=== PATIENT | female | born 1945 | race Two or more races ===

== ENCOUNTER 2022-06-11 19:06 | Inpatient (IN) | payer OTHER ==
[~2022-06-11] VITALS: Ht 170.2 cm; Wt 76.5 kg
[2022-06-11 21:14] LABS: Basophils # (auto) 0 10 ^3/uL (0-0.2); Basophils % (auto) 0.6 % (0.0-2.0); Eosinophils # (auto) 0.1 10 ^3/uL (0-0.8); Eosinophils % (auto) 3.6 % (0.0-7.0); Hematocrit 32.4 % (36.0-46.0); Hemoglobin 11.2 g/dL (12.2-16.2); Lymphocytes # (auto) 0.7 10 ^3/uL (0.4-5.4); Lymphocytes % (auto) 19.1 % (10.0-50.0); Mean Corpuscular Hgb Conc. 34.4 g/dL (32.0-36.0); Mean Corpuscular Volume 84.3 fL (80.0-100.0); Monocytes # (auto) 0.4 10 ^3/uL (0-1.3); Monocytes % (auto) 11.4 % (0.0-12.0); Neutrophils # (auto) 2.5 10 ^3/uL (1.6-8.6); Neutrophils % (auto) 65.3 % (37.0-80.0); Nucleated Red Blood Cells % 0.1 %; Red Blood Cells 3.85 10^6/uL (4.0-5.20); Red Cell Distribution Width 14.5 % (11.8-14.3); White Blood Cell 3.9 10^3/uL (4.4-10.8)
[2022-06-11 21:47] LABS: Alanine Aminotransferase 54 U/L (13-56); Albumin 2.8 g/dL (3.4-5.0); Alkaline Phosphatase 97 U/L (45-117); Anion Gap 9 (5-15); Aspartate Aminotransferase 43 U/L (15-37); BUN/Creatinine Ratio 15.4; Bilirubin, Total 0.7 mg/dL (0.2-1.0); Blood Urea Nitrogen 16 mg/dL (7-18); Calcium 8.4 mg/dL (8.5-10.1); Carbon Dioxide 27 mmol/L (21-32); Chloride 101 mmol/L (98-107); GFR African American 67 mL/min; GFR Non-African American 55 mL/min; Glucose 255 mg/dL (74-106); Magnesium 1.7 mg/dL (1.6-2.6); Potassium 3.5 mmol/L (3.5-5.1); Sodium 137 mmol/L (136-145); Total Protein 5.9 g/dL (6.4-8.2)
[2022-06-12] MEDS ORDERED: SODIUM CHLORIDE 0.9% 1,000 ML IV ONE (01:45)
[2022-06-12] MEDS ORDERED: ONDANSETRON HCL 4 MG/2 ML VIAL IV ONE (03:00)
[2022-06-12] MEDS ORDERED: MORPHINE SULFATE INJ 2 MG/ml SYRG IV PRN (04:30)
[2022-06-12] MEDS ORDERED: ACETAMINOPHEN 325 MG TAB PO PRN (04:30)
[2022-06-12] MEDS ORDERED: DOCUSATE SOD 100 MG CAP PO PRN (04:30)
[2022-06-12] MEDS ORDERED: LORazepam 0.5 MG TAB PO PRN (04:30)
[2022-06-12] MEDS ORDERED: TEMAZEPAM 15 MG CAP PO PRN (04:30)
[2022-06-12] MEDS: SODIUM CHLORIDE 0.9% 1,000 ML IV SCH ×3 (07:04→23:01)
[2022-06-12 08:30] LABS: Basophils # (auto) 0 10 ^3/uL (0-0.2); Basophils % (auto) 0.4 % (0.0-2.0); Eosinophils # (auto) 0.2 10 ^3/uL (0-0.8); Eosinophils % (auto) 5.2 % (0.0-7.0); Hematocrit 31.7 % (36.0-46.0); Hemoglobin 10.8 g/dL (12.2-16.2); Lymphocytes % (auto) 21.2 % (10.0-50.0); Mean Corpuscular Hemoglobin 28.4 pg (28.0-32.0); Mean Corpuscular Hgb Conc. 34.1 g/dL (32.0-36.0); Mean Corpuscular Volume 83.3 fL (80.0-100.0); Monocytes # (auto) 0.5 10 ^3/uL (0-1.3); Monocytes % (auto) 11.4 % (0.0-12.0); Neutrophils # (auto) 2.8 10 ^3/uL (1.6-8.6); Neutrophils % (auto) 61.8 % (37.0-80.0); Nucleated Red Blood Cells % 0.1 %; Red Cell Distribution Width 14.4 % (11.8-14.3); White Blood Cell 4.6 10^3/uL (4.4-10.8)
[2022-06-12] MEDS: ONDANSETRON HCL 4 MG/2 ML VIAL IV PRN ×2 (08:56→20:16)
[2022-06-12 09:56] LABS: Potassium 3.4 mmol/L (3.5-5.1)
[2022-06-12 09:57] LABS: BUN/Creatinine Ratio 18.2; Calcium 7.9 mg/dL (8.5-10.1)
[2022-06-12 10:49] LABS: INR 1.3 (0.9-1.15)
[2022-06-13] MEDS: MAALOX PLUS or MAALOX 30 ML PO PRN (00:31)
[2022-06-13 01:04] LABS: Urine Bacteria NONE SEEN /hpf (None Seen); Urine Blood 1+ /uL (Negative); Urine Specific Gravity 1.009 (1.001-1.035); Urine WBC 5 /hpf (0 - 5)
[2022-06-13 05:43] LABS: Basophils # (auto) 0 10 ^3/uL (0-0.2); Basophils % (auto) 0.4 % (0.0-2.0); Eosinophils # (auto) 0.2 10 ^3/uL (0-0.8); Eosinophils % (auto) 4.9 % (0.0-7.0); Hematocrit 30.2 % (36.0-46.0); Hemoglobin 10.2 g/dL (12.2-16.2); Lymphocytes # (auto) 1.1 10 ^3/uL (0.4-5.4); Lymphocytes % (auto) 21.5 % (10.0-50.0); Mean Corpuscular Hemoglobin 28.4 pg (28.0-32.0); Mean Corpuscular Hgb Conc. 33.8 g/dL (32.0-36.0); Mean Corpuscular Volume 83.8 fL (80.0-100.0); Monocytes # (auto) 0.5 10 ^3/uL (0-1.3); Monocytes % (auto) 9.3 % (0.0-12.0); Neutrophils # (auto) 3.2 10 ^3/uL (1.6-8.6); Neutrophils % (auto) 63.9 % (37.0-80.0); Nucleated Red Blood Cells % 0.1 %; Red Blood Cells 3.61 10^6/uL (4.0-5.20); Red Cell Distribution Width 14.3 % (11.8-14.3)
[2022-06-13 06:05] LABS: BUN/Creatinine Ratio 23.6; Calcium 8.3 mg/dL (8.5-10.1); Potassium 3.3 mmol/L (3.5-5.1)
[2022-06-13] MEDS ORDERED: POTASSIUM EFFERVESENT TAB 25 MEQ GT ONE (11:45)
[2022-06-13] MEDS: SODIUM CHLORIDE 0.9% 1,000 ML IV SCH (13:56)
[2022-06-13] MEDS: ONDANSETRON HCL 4 MG/2 ML VIAL IV PRN (13:58)
[2022-06-13] MEDS ORDERED: DABI150C5 PO (15:41)
[2022-06-13] MEDS ORDERED: METF-370 PO (15:42)
[2022-06-13] MEDS ORDERED: BISO10TA31 PO (15:43)
[2022-06-13] MEDS ORDERED: ONDA-144 PO (15:44)
[2022-06-13] MEDS ORDERED: LISI30TA4 PO (15:46)
[2022-06-13] MEDS ORDERED: ATOR20TA50 PO (15:47)
[2022-06-13] MEDS ORDERED: LISINOPRIL 20 MG TAB PO ONE (16:00)
[2022-06-13] MEDS ORDERED: ATORVASTATIN 20 MG TAB PO ONE (16:00)
[2022-06-13 18:00] VITALS: BP 146/47
[2022-06-13] MEDS: metFORMIN HYDROCHLORIDE 500 MG TAB PO SCH (21:18)
[2022-06-13 22:00] VITALS: BP 136/55
[2022-06-14] MEDS: HYDROcodone-ACET 5/325MG TAB PO PRN (04:42)
[2022-06-14 05:00] VITALS: BP 112/70
[2022-06-14] MEDS: SODIUM CHLORIDE 0.9% 1,000 ML IV SCH ×2 (05:44→23:10)
[2022-06-14 06:11] LABS: Basophils # (auto) 0 10 ^3/uL (0-0.2); Basophils % (auto) 0.3 % (0.0-2.0); Eosinophils # (auto) 0.2 10 ^3/uL (0-0.8); Eosinophils % (auto) 2.6 % (0.0-7.0); Hematocrit 32.4 % (36.0-46.0); Hemoglobin 11.2 g/dL (12.2-16.2); Lymphocytes % (auto) 15.8 % (10.0-50.0); Mean Corpuscular Hemoglobin 29.2 pg (28.0-32.0); Mean Corpuscular Hgb Conc. 34.7 g/dL (32.0-36.0); Mean Corpuscular Volume 84.2 fL (80.0-100.0); Monocytes # (auto) 0.5 10 ^3/uL (0-1.3); Monocytes % (auto) 7.6 % (0.0-12.0); Neutrophils # (auto) 4.9 10 ^3/uL (1.6-8.6); Neutrophils % (auto) 73.7 % (37.0-80.0); Nucleated Red Blood Cells % 0.1 %; Red Blood Cells 3.85 10^6/uL (4.0-5.20); Red Cell Distribution Width 14.6 % (11.8-14.3); White Blood Cell 6.6 10^3/uL (4.4-10.8)
[2022-06-14 06:25] LABS: Calcium 8.1 mg/dL (8.5-10.1)
[2022-06-14 06:27] LABS: BUN/Creatinine Ratio 17.2
[2022-06-14] MEDS: metFORMIN HYDROCHLORIDE 500 MG TAB PO SCH (08:29)
[2022-06-14] MEDS: MAALOX PLUS or MAALOX 30 ML PO PRN (08:35)
[2022-06-14 09:17] VITALS: BP 103/73
[2022-06-14] MEDS ORDERED: DEXTROSE (50%) 50ML SYRG IV PRN (14:45)
[2022-06-14] MEDS ORDERED: levoFLOXacin 500 MG TAB PO ONE (14:45)
[2022-06-14 16:51] VITALS: BP 129/52
[2022-06-14] MEDS: ACCU-CHEK COMFORT CURVE STRIP VI SCH ×2 (17:58→23:55)
[2022-06-14] MEDS: InsuLIN REG 1unit/0.01ml Soln (100units/ml) SC SCH (17:59)
[2022-06-14] MEDS: PANCREATIC ENZYMES 4200 UNIT CAP PO SCH (18:16)
[2022-06-14 22:00] VITALS: BP 143/60
[2022-06-15] MEDS: InsuLIN REG 1unit/0.01ml Soln (100units/ml) SC SCH ×4 (00:14→17:31)
[2022-06-15 05:00] VITALS: BP 149/72
[2022-06-15] MEDS: ACCU-CHEK COMFORT CURVE STRIP VI SCH ×3 (05:55→17:30)
[2022-06-15] MEDS: HYDROcodone-ACET 5/325MG TAB PO PRN (06:09)
[2022-06-15 07:26] LABS: Potassium 3.8 mmol/L (3.5-5.1)
[2022-06-15 07:33] LABS: BUN/Creatinine Ratio 16.9
[2022-06-15] MEDS: PANCREATIC ENZYMES 4200 UNIT CAP PO SCH ×3 (08:23→17:53)
[2022-06-15 09:00] VITALS: BP 160/82
[2022-06-15] MEDS: levoFLOXacin 500 MG TAB PO SCH (09:51)
[2022-06-15 13:00] VITALS: BP 86/70
[2022-06-15] MEDS ORDERED: SODIUM CHLORIDE 0.9% 1,000 ML IV ONE (14:45)
[2022-06-15] MEDS: SODIUM CHLORIDE 0.9% 1,000 ML IV SCH (15:27)
[2022-06-15 17:00] VITALS: BP 144/71
[2022-06-15 22:00] VITALS: BP 145/68
[2022-06-16] VITALS (12 sets, daily range): BP systolic 130–177; BP diastolic 58–97
[2022-06-16] MEDS: ACCU-CHEK COMFORT CURVE STRIP VI SCH ×5 (00:07→23:25)
[2022-06-16] MEDS: InsuLIN REG 1unit/0.01ml Soln (100units/ml) SC SCH ×5 (00:08→23:31)
[2022-06-16] MEDS: SODIUM CHLORIDE 0.9% 1,000 ML IV SCH ×3 (00:45→21:46)
[2022-06-16 06:10] LABS: INR 1.46 (0.9-1.15); Partial Thromboplastin Time 49.3 sec (24.6-33.4)
[2022-06-16 08:38] LABS: Basophils # (auto) 0 10 ^3/uL (0-0.2); Basophils % (auto) 0.4 % (0.0-2.0); Eosinophils # (auto) 0.2 10 ^3/uL (0-0.8); Eosinophils % (auto) 2.4 % (0.0-7.0); Hematocrit 27.7 % (36.0-46.0); Hemoglobin 9.8 g/dL (12.2-16.2); Lymphocytes # (auto) 1.1 10 ^3/uL (0.4-5.4); Lymphocytes % (auto) 13.8 % (10.0-50.0); Mean Corpuscular Hemoglobin 29.4 pg (28.0-32.0); Mean Corpuscular Hgb Conc. 35.3 g/dL (32.0-36.0); Mean Corpuscular Volume 83.2 fL (80.0-100.0); Monocytes % (auto) 12.5 % (0.0-12.0); Neutrophils # (auto) 5.5 10 ^3/uL (1.6-8.6); Neutrophils % (auto) 70.9 % (37.0-80.0); Nucleated Red Blood Cells % 0.1 %; Red Blood Cells 3.33 10^6/uL (4.0-5.20); Red Cell Distribution Width 14.6 % (11.8-14.3); White Blood Cell 7.8 10^3/uL (4.4-10.8)
[2022-06-16] MEDS: levoFLOXacin 500 MG TAB PO SCH ×2 (10:00→12:00)
[2022-06-16] MEDS: PANCREATIC ENZYMES 4200 UNIT CAP PO SCH ×3 (10:19→17:46)
[2022-06-16] MEDS ORDERED: MIDAZOLAM HCL 2MG/2ML 2ml VIAL (1mg/ml) ONE (10:37)
[2022-06-16] MEDS ORDERED: fentaNYL CITRATE 100 MCG/2 ML VL ONE (10:38)
[2022-06-16] MEDS ORDERED: GELATIN 1 SPONGE SIZE 50 TOP ONE (10:49)
[2022-06-16] MEDS: HYDROcodone-ACET 5/325MG TAB PO PRN ×2 (12:19→21:37)
[2022-06-16] MEDS ORDERED: LISINOPRIL 20 MG TAB PO ONE (12:30)
[2022-06-16] MEDS: HYDROmorphone HCL 2 MG/ML VL/or syr IV PRN (15:51)
[2022-06-16] MEDS ORDERED: ENOXAPARIN SOD 80 MG/0.8ML SYRINGE SC ONE (16:00)
[2022-06-16] MEDS: hydrALAZINE HCL 20 MG/ML VL IV PRN (17:47)
[2022-06-16] MEDS: DABIGATRAN 75 MG CAP PO SCH (21:36)
[2022-06-17 00:15] VITALS: BP 149/80
[2022-06-17] MEDS: InsuLIN REG 1unit/0.01ml Soln (100units/ml) SC SCH ×4 (05:28→23:26)
[2022-06-17] MEDS: ACCU-CHEK COMFORT CURVE STRIP VI SCH ×4 (05:28→23:25)
[2022-06-17] MEDS: hydrALAZINE HCL 20 MG/ML VL IV PRN (05:29)
[2022-06-17] MEDS: HYDROmorphone HCL 2 MG/ML VL/or syr IV PRN ×2 (05:30→12:14)
[2022-06-17 05:40] VITALS: BP 152/83
[2022-06-17] MEDS: SODIUM CHLORIDE 0.9% 1,000 ML IV SCH ×2 (06:45→14:41)
[2022-06-17 07:14] LABS: Basophils # (auto) 0 10 ^3/uL (0-0.2); Basophils % (auto) 0.4 % (0.0-2.0); Eosinophils # (auto) 0.2 10 ^3/uL (0-0.8); Eosinophils % (auto) 3.1 % (0.0-7.0); Hematocrit 27.8 % (36.0-46.0); Hemoglobin 9.8 g/dL (12.2-16.2); Lymphocytes % (auto) 14.1 % (10.0-50.0); Mean Corpuscular Hemoglobin 29.3 pg (28.0-32.0); Mean Corpuscular Hgb Conc. 35.3 g/dL (32.0-36.0); Mean Corpuscular Volume 83.1 fL (80.0-100.0); Monocytes # (auto) 0.9 10 ^3/uL (0-1.3); Neutrophils # (auto) 5.1 10 ^3/uL (1.6-8.6); Neutrophils % (auto) 70.4 % (37.0-80.0); Red Blood Cells 3.35 10^6/uL (4.0-5.20); Red Cell Distribution Width 14.9 % (11.8-14.3); White Blood Cell 7.3 10^3/uL (4.4-10.8)
[2022-06-17 07:33] LABS: Potassium 3.6 mmol/L (3.5-5.1)
[2022-06-17 07:42] LABS: Albumin 2.4 g/dL (3.4-5.0); BUN/Creatinine Ratio 22.5; Bilirubin, Total 1.8 mg/dL (0.2-1.0); Total Protein 5.4 g/dL (6.4-8.2)
[2022-06-17 09:00] VITALS: BP 117/58
[2022-06-17] MEDS ORDERED: METOPROLOL TARTRATE 50 MG TAB PO ONE (09:45)
[2022-06-17] MEDS ORDERED: LISINOPRIL 20 MG TAB PO SCH (10:00)
[2022-06-17] MEDS: levoFLOXacin 500 MG TAB PO SCH (10:21)
[2022-06-17] MEDS: HYDROcodone-ACET 5/325MG TAB PO PRN ×2 (10:22→21:51)
[2022-06-17] MEDS: DABIGATRAN 75 MG CAP PO SCH ×2 (10:23→21:50)
[2022-06-17] MEDS: PANCREATIC ENZYMES 4200 UNIT CAP PO SCH ×3 (10:25→17:58)
[2022-06-17] MEDS ORDERED: dilTIAZem 25 MG/5 ML VIAL IV ONE ×3 (10:45→11:02)
[2022-06-17] MEDS ORDERED: NOREPINEPHRINE 8 MG/250ML KIT 250 ML IV ONE (10:48)
[2022-06-17] MEDS ORDERED: DIGOXIN (250MCG/ML) 2 ML AMPULE ONE (10:53)
[2022-06-17] MEDS ORDERED: DIGOXIN (250MCG/ML) 2 ML AMPULE IV ONE (11:00)
[2022-06-17] MEDS ORDERED: MAGNESIUM SULFATE 1GM/100ML 100 ML IV ONE (11:15)
[2022-06-17] MEDS ORDERED: POTASSIUM EFFERVESENT TAB 25 MEQ PO ONE (11:15)
[2022-06-17 13:00] VITALS: BP 138/74
[2022-06-17] MEDS ORDERED: LABETALOL HCL 5 MG/ML 4ML SYRINGE IV PRN (13:45)
[2022-06-17] MEDS ORDERED: ASPI-543 PO (16:37)
[2022-06-17 17:00] VITALS: BP 125/57
[2022-06-17 22:00] VITALS: BP 147/67
[2022-06-18] MEDS: SODIUM CHLORIDE 0.9% 1,000 ML IV SCH (03:05)
[2022-06-18 05:00] VITALS: BP 149/71
[2022-06-18] MEDS: ACCU-CHEK COMFORT CURVE STRIP VI SCH ×4 (05:48→23:34)
[2022-06-18] MEDS: InsuLIN REG 1unit/0.01ml Soln (100units/ml) SC SCH ×4 (05:48→23:36)
[2022-06-18 06:28] LABS: Basophils # (auto) 0 10 ^3/uL (0-0.2); Basophils % (auto) 0.2 % (0.0-2.0); Eosinophils # (auto) 0.2 10 ^3/uL (0-0.8); Eosinophils % (auto) 2.5 % (0.0-7.0); Hematocrit 27.3 % (36.0-46.0); Hemoglobin 9.8 g/dL (12.2-16.2); Mean Corpuscular Hgb Conc. 35.7 g/dL (32.0-36.0); Monocytes # (auto) 0.8 10 ^3/uL (0-1.3); Neutrophils % (auto) 71.3 % (37.0-80.0); Nucleated Red Blood Cells % 0.1 %; Red Blood Cells 3.26 10^6/uL (4.0-5.20); Red Cell Distribution Width 15.1 % (11.8-14.3); White Blood Cell 7.1 10^3/uL (4.4-10.8)
[2022-06-18 06:50] LABS: Potassium 3.9 mmol/L (3.5-5.1)
[2022-06-18 06:57] LABS: Albumin 2.3 g/dL (3.4-5.0); BUN/Creatinine Ratio 25.6; Bilirubin, Total 1.6 mg/dL (0.2-1.0); Calcium 7.9 mg/dL (8.5-10.1); Total Protein 5.3 g/dL (6.4-8.2)
[2022-06-18 09:00] VITALS: BP 147/63
[2022-06-18] MEDS: HYDROmorphone HCL 2 MG/ML VL/or syr IV PRN ×3 (09:28→23:35)
[2022-06-18] MEDS: DABIGATRAN 75 MG CAP PO SCH ×2 (09:32→21:48)
[2022-06-18] MEDS: levoFLOXacin 500 MG TAB PO SCH (09:33)
[2022-06-18] MEDS: PANCREATIC ENZYMES 4200 UNIT CAP PO SCH ×3 (09:46→17:55)
[2022-06-18] MEDS ORDERED: METOPROLOL SUCCINATE XL 50 MG TAB PO SCH (10:00)
[2022-06-18] MEDS ORDERED: DIGOXIN (250MCG/ML) 2 ML AMPULE IV SCH (10:00)
[2022-06-18] MEDS ORDERED: DIGOXIN 0.125 MG TAB PO SCH (10:00)
[2022-06-18] MEDS ORDERED: DIGOXIN 0.125 MG TAB PO ONE (11:30)
[2022-06-18 13:00] VITALS: BP 142/68
[2022-06-18 17:00] VITALS: BP 143/56
[2022-06-18] MEDS: HYDROcodone-ACET 5/325MG TAB PO PRN (20:44)
[2022-06-18 22:00] VITALS: BP 148/68
[2022-06-19 05:00] VITALS: BP 127/54
[2022-06-19] MEDS: ACCU-CHEK COMFORT CURVE STRIP VI SCH ×3 (05:52→18:06)
[2022-06-19] MEDS: InsuLIN REG 1unit/0.01ml Soln (100units/ml) SC SCH ×3 (05:52→18:06)
[2022-06-19 08:57] VITALS: BP 139/64
[2022-06-19] MEDS: DABIGATRAN 75 MG CAP PO SCH ×2 (09:27→21:07)
[2022-06-19] MEDS: levoFLOXacin 500 MG TAB PO SCH (09:28)
[2022-06-19] MEDS: PANCREATIC ENZYMES 4200 UNIT CAP PO SCH ×3 (09:30→18:03)
[2022-06-19] MEDS: HYDROmorphone HCL 2 MG/ML VL/or syr IV PRN ×2 (09:53→18:12)
[2022-06-19] MEDS ORDERED: DIGOXIN 0.125 MG TAB PO SCH (10:00)
[2022-06-19] MEDS ORDERED: POTASSIUM CHL 10 Meq TABLET PO ONE (12:00)
[2022-06-19] MEDS ORDERED: FUROSEMIDE 20 MG TAB PO ONE (12:00)
[2022-06-19] MEDS ORDERED: MAALOX PLUS or MAALOX 30 ML PO PRN (12:30)
[2022-06-19 13:00] VITALS: BP 122/71
[2022-06-19] MEDS ORDERED: AMIODARONE HCL 200 MG TAB PO ONE (16:00)
[2022-06-19 17:00] VITALS: BP 126/59
[2022-06-19] MEDS: HYDROcodone-ACET 5/325MG TAB PO PRN (21:07)
[2022-06-19] MEDS: AMIODARONE HCL 200 MG TAB PO SCH (21:07)
[2022-06-19 22:00] VITALS: BP 126/59
[2022-06-20] MEDS: InsuLIN REG 1unit/0.01ml Soln (100units/ml) SC SCH ×4 (00:49→18:31)
[2022-06-20] MEDS: ACCU-CHEK COMFORT CURVE STRIP VI SCH ×4 (00:50→18:29)
[2022-06-20 05:00] VITALS: BP 118/73
[2022-06-20 07:06] LABS: Calcium 7.8 mg/dL (8.5-10.1); Potassium 3.8 mmol/L (3.5-5.1)
[2022-06-20] MEDS: PANCREATIC ENZYMES 4200 UNIT CAP PO SCH ×3 (08:45→18:32)
[2022-06-20 09:00] VITALS: BP 131/80
[2022-06-20] MEDS: FUROSEMIDE 20 MG TAB PO SCH (09:28)
[2022-06-20] MEDS: POTASSIUM CHL 10 Meq TABLET PO SCH (09:29)
[2022-06-20] MEDS: levoFLOXacin 500 MG TAB PO SCH (09:29)
[2022-06-20] MEDS: HYDROcodone-ACET 5/325MG TAB PO PRN ×2 (09:30→20:39)
[2022-06-20] MEDS: AMIODARONE HCL 200 MG TAB PO SCH ×2 (09:30→21:02)
[2022-06-20] MEDS: DABIGATRAN 75 MG CAP PO SCH ×2 (09:30→21:03)
[2022-06-20] MEDS ORDERED: DIGOXIN 0.125 MG TAB PO SCH (10:00)
[2022-06-20] MEDS ORDERED: PANC24002 PO (15:35)
[2022-06-20 16:30] VITALS: BP 123/73
[2022-06-20] MEDS: LEVALBUTEROL HCL 1.25 MG/3 ML NEB NEB SCH ×2 (18:02→23:52)
[2022-06-20 21:48] VITALS: BP 161/62
[2022-06-20 22:05] VITALS: BP 141/59
[2022-06-20 23:22] VITALS: BP 141/59
[2022-06-21] MEDS: HYDROcodone-ACET 5/325MG TAB PO PRN ×2 (04:04→11:54)
[2022-06-21 05:00] VITALS: BP 148/59
[2022-06-21] MEDS: ACCU-CHEK COMFORT CURVE STRIP VI SCH ×3 (06:00→12:13)
[2022-06-21] MEDS: InsuLIN REG 1unit/0.01ml Soln (100units/ml) SC SCH ×3 (06:38→12:00)
[2022-06-21] MEDS: LEVALBUTEROL HCL 1.25 MG/3 ML NEB NEB SCH ×2 (07:50→12:05)
[2022-06-21] MEDS: PANCREATIC ENZYMES 4200 UNIT CAP PO SCH ×2 (08:09→12:13)
[2022-06-21 09:17] VITALS: BP 139/59
[2022-06-21] MEDS: levoFLOXacin 500 MG TAB PO SCH (10:10)
[2022-06-21] MEDS: POTASSIUM CHL 10 Meq TABLET PO SCH (10:11)
[2022-06-21] MEDS: DABIGATRAN 75 MG CAP PO SCH (10:11)
[2022-06-21] MEDS: FUROSEMIDE 20 MG TAB PO SCH (10:11)
[2022-06-21] MEDS: AMIODARONE HCL 200 MG TAB PO SCH (10:11)
[2022-06-21 11:51] VITALS: BP 139/59
[2022-06-24] MEDS ORDERED: MIDAZOLAM HCL 2MG/2ML 2ml VIAL (1mg/ml) IV ONE (12:45)
[2022-06-24] MEDS ORDERED: fentaNYL CITRATE 100 MCG/2 ML VL IV ONE (12:45)
== END 2022-06-21 12:30 | disposition hospice, home (50) | DRG 436 ==
LOC: ER 19:06 → OVERFLOW 06-12 04:25 → WEST WING 06-13 17:11 → TELE-WESTW 06-17 09:46
PROVIDERS: ADMIT Hospitalist; ATTEND Nurse Practitioner Acute Care
PROC: 0FB03ZX Excision of Liver, Percutaneous Approach, Diagnostic (ICD-10-PCS; principal; 2022-06-16)
DX: C25.9 Malignant neoplasm of pancreas, unspecified (principal); C78.00 Secondary malignant neoplasm of unspecified lung; E44.0 Moderate protein-calorie malnutrition; C78.7 Secondary malignant neoplasm of liver and intrahepatic bile duct; E11.9 Type 2 diabetes mellitus without complications; R19.7 Diarrhea, unspecified; R19.00 Intra-abdominal and pelvic swelling, mass and lump, unspecified site; I10 Essential (primary) hypertension; F17.210 Nicotine dependence, cigarettes, uncomplicated; E78.5 Hyperlipidemia, unspecified; I48.91 Unspecified atrial fibrillation; Z20.822 Contact with and (suspected) exposure to COVID-19; Z51.5 Encounter for palliative care; Z68.24 Body mass index [BMI] 24.0-24.9, adult; Z86.711 Personal history of pulmonary embolism; Z86.718 Personal history of other venous thrombosis and embolism; Z86.73 Personal history of transient ischemic attack (TIA), and cerebral infarction without residual deficits; Z80.0 Family history of malignant neoplasm of digestive organs; Z88.0 Allergy status to penicillin; Z88.8 Allergy status to other drugs, medicaments and biological substances; Z90.49 Acquired absence of other specified parts of digestive tract; Z98.84 Bariatric surgery status
CPT/HCPCS: 10005; 36415; 71045; 74150; 74176; 76705; 76830; 76856; 76942; 77012; 80048; 80053; 80162; 81001; 82105; 82378; 82607; 82962; 83615; 83735; 83880; 84443; 84484; 85025; 85610; 85730; 86301; 87045; 87177; 87426; 87427; 87493; 93005; 93306; 93970; 93971; 94640; 96361; 96374; 97110; 97116; 97163; 97530; G0378; J1815; J2250; J2405